=== PATIENT | female | born 1970 | race Caucasian/White ===

== ENCOUNTER 2018-07-11 04:03 | Emergency (ER) | payer MEDICAID ==
[~2018-07-11] VITALS: Ht 162.6 cm; Wt 65.0 kg
[~2018-07-11 04:03] MED LIST: ADVIL PO; ISONIAZID PO; SUMA100T16 PO; TRAMADOL PO; TYLENOL PO; VIT B6 PO
[2018-07-11] MEDS ORDERED: KETOROLAC 30MG/ML VIAL IV ONE (09:15)
[2018-07-11] MEDS ORDERED: SODIUM CHLORIDE 0.9% 1,000 ML IV ONE (09:15)
[2018-07-11] MEDS ORDERED: DIPHENHYDRAMINE 50MG/ML VIAL IV ONE (09:15)
[2018-07-11 11:24] VITALS: BP 118/82
== END 2018-07-11 11:26 | disposition home or self-care (01) ==
LOC: ER 04:03
DX: R51 Headache (principal); Z88.5 Allergy status to narcotic agent; Z91.018 Allergy to other foods
CPT/HCPCS: 81025; 96374; 96375; 99283; J1200; J1885; J7030; Z7610

== ENCOUNTER 2018-11-05 20:18 | Emergency (ER) | payer MEDICAID ==
[~2018-11-05] VITALS: Ht 162.6 cm; Wt 65.7 kg
[2018-11-05] MEDS ORDERED: SODIUM CHLORIDE 0.9% 500 ML IV ONE (22:42)
[2018-11-05] MEDS ORDERED: METOCLOPRAMIDE HCL 10MG/2ML VIAL IV ONE (22:45)
[2018-11-05] MEDS ORDERED: KETOROLAC 15MG/ML VIAL IV ONE (22:45)
[2018-11-05] MEDS ORDERED: DIPHENHYDRAMINE 50MG/ML VIAL IV ONE (22:45)
[2018-11-05 23:06] LABS: BASOPHILS % 0.7 % (0.0-2.0); EOSINOPHILS % 0.7 % (0.0-5.0); HEMATOCRIT. 37.3 % (36.0-48.0); HEMOGLOBIN. 13.2 g/dL (12.0-16.0); LYMPHOCYTES % 20.6 % (20.0-50.0); MEAN CORPUSCULAR VOLUME 87.3 fL (81.0-99.0); MEAN PLATELET VOLUME 8.2 fl (7.4-10.4); PLATELET 219 x1000/uL (130-400); RED BLOOD CELL COUNT 4.28 mill/uL (4.2-5.4); RED CELL DISTRIBUTION WIDTH 13.5 % (11.6-14.6)
[2018-11-05 23:09] LABS: CHLORIDE 107 mEq/L (98-107)
[2018-11-06] MEDS ORDERED: LORAZEPAM 1MG TABLET PO ONE (02:45)
[2018-11-06 05:07] VITALS: BP 108/59
== END 2018-11-06 05:30 | disposition home or self-care (01) ==
LOC: ER 20:18
DX: R51 Headache (principal); R07.89 Other chest pain; Z88.5 Allergy status to narcotic agent; Z79.899 Other long term (current) drug therapy
CPT/HCPCS: 36415; 71045; 80053; 83880; 84484; 85025; 93005; 96374; 96375; 99284; J1200; J1885; J2765; J7030; J7040; Z7610

== ENCOUNTER 2019-03-27 07:49 | Emergency (ER) | payer MEDICAID ==
[~2019-03-27] VITALS: Ht 162.6 cm; Wt 64.0 kg
[2019-03-27] MEDS ORDERED: IBUPROFEN 400MG TABLET PO ONE (08:45)
[2019-03-27] MEDS ORDERED: ACETAMINOPHEN 325MG TABLET PO ONE (08:45)
[2019-03-27 08:52] LABS: BASOPHILS % 1.4 % (0.0-2.0); EOSINOPHILS % 2.8 % (0.0-5.0); HEMATOCRIT. 39.9 % (36.0-48.0); HEMOGLOBIN. 13.7 g/dL (12.0-16.0); LYMPHOCYTES % 31.9 % (20.0-50.0); MEAN CORPUSCULAR HEMOGLOBIN 29.9 pg (28.0-32.0); MEAN CORPUSCULAR VOLUME 87.3 fL (81.0-99.0); NEUTROPHILS % 53.9 % (40.0-76.0); PLATELET 201 x1000/uL (130-400); RED BLOOD CELL COUNT 4.58 mill/uL (4.2-5.4)
[2019-03-27 08:58] LABS: CHLORIDE 110 mEq/L (98-107)
[2019-03-27 11:27] VITALS: BP 120/79
== END 2019-03-27 11:27 | disposition home or self-care (01) ==
LOC: ER 07:49
DX: R07.9 Chest pain, unspecified (principal); R07.89 Other chest pain; G43.909 Migraine, unspecified, not intractable, without status migrainosus; M19.90 Unspecified osteoarthritis, unspecified site; Z88.6 Allergy status to analgesic agent; Z91.018 Allergy to other foods
CPT/HCPCS: 36415; 71045; 80053; 83880; 84484; 85025; 93005; 99284; Z7610

== ENCOUNTER 2019-05-17 15:44 | Emergency (ER) | payer MEDICAID ==
[~2019-05-17] VITALS: Ht 165.1 cm; Wt 60.0 kg
[2019-05-17] MEDS ORDERED: SODIUM CHLORIDE 0.9% 1,000 ML IV ONE (20:08)
[2019-05-17] MEDS ORDERED: ONDANSETRON HCL 4MG/2ML INJ IV STA (20:08)
[2019-05-17] MEDS ORDERED: KETOROLAC 30MG/ML VIAL IV STA (20:08)
[2019-05-17 21:09] VITALS: BP 119/83
[2019-05-17 21:25] LABS: BASOPHILS % 1.8 % (0.0-2.0); EOSINOPHILS % 2.9 % (0.0-5.0); HEMATOCRIT. 37.4 % (36.0-48.0); HEMOGLOBIN. 12.8 g/dL (12.0-16.0); LYMPHOCYTES % 35.7 % (20.0-50.0); MEAN CORPUSCULAR HEMOGLOBIN 29.7 pg (28.0-32.0); MEAN CORPUSCULAR VOLUME 86.4 fL (81.0-99.0); MEAN PLATELET VOLUME 8.7 fl (7.4-10.4); MONOCYTES % 10.9 % (2.0-8.0); NEUTROPHILS % 48.7 % (40.0-76.0); PLATELET 206 x1000/uL (130-400); RED BLOOD CELL COUNT 4.33 mill/uL (4.2-5.4); RED CELL DISTRIBUTION WIDTH 13.2 % (11.6-14.6)
[2019-05-17 21:32] LABS: CHLORIDE 110 mEq/L (98-107)
== END 2019-05-17 23:07 | disposition home or self-care (01) ==
LOC: ER 15:44
DX: R51 Headache (principal); R11.0 Nausea; Z88.6 Allergy status to analgesic agent; Z91.018 Allergy to other foods
CPT/HCPCS: 36415; 80053; 85025; 93005; 96361; 96374; 96375; 99284; J1885; J2405; J7030; Z7610

== ENCOUNTER 2019-07-03 07:03 | Emergency (ER) | payer MEDICAID ==
[~2019-07-03] VITALS: Ht 165.1 cm; Wt 80.0 kg
[2019-07-03] MEDS ORDERED: LORAZEPAM 0.5MG TABLET PO ONE (08:00)
[2019-07-03] MEDS ORDERED: ONDANSETRON 4MG ODT PO ONE (08:00)
[2019-07-03 08:44] LABS: BASOPHILS % 0.5 % (0.0-2.0); EOSINOPHILS % 0.1 % (0.0-5.0); HEMOGLOBIN. 12.6 g/dL (12.0-16.0); LYMPHOCYTES % 8.3 % (20.0-50.0); MEAN CORPUSCULAR HEMOGLOBIN 29.4 pg (28.0-32.0); MEAN CORPUSCULAR VOLUME 85.9 fL (81.0-99.0); MEAN PLATELET VOLUME 8.4 fl (7.4-10.4); MONOCYTES % 7.1 % (2.0-8.0); PLATELET 209 x1000/uL (130-400); RED BLOOD CELL COUNT 4.31 mill/uL (4.2-5.4); RED CELL DISTRIBUTION WIDTH 13.3 % (11.6-14.6)
[2019-07-03 08:49] LABS: INR 1.3; PROTHROMBIN TIME 13.3 sec (9.6-11.0)
[2019-07-03 08:50] LABS: CHLORIDE 109 mEq/L (98-107)
[2019-07-03 09:37] LABS: CLARITY URINE CLEAR (CLEAR); COLOR URINE YELLOW (YELLOW); KETONES URINE 4+ (NEGATIVE); LEUKOCYTE ESTERASE URINE NEGATIVE (NEGATIVE); NITRITE URINE NEGATIVE (NEGATIVE); OCCULT BLOOD URINE NEGATIVE (NEGATIVE); PROTEIN URINE NEGATIVE (NEGATIVE); SPECIFIC GRAVITY URINE 1.026 (1.005-1.030); UROBILINOGEN URINE 0.2 E.U./dL (0.2-1.0)
[2019-07-03 10:35] VITALS: BP 98/57
== END 2019-07-03 10:36 | disposition home or self-care (01) ==
LOC: ER 07:03
DX: R00.2 Palpitations (principal); F41.9 Anxiety disorder, unspecified; F32.9 Major depressive disorder, single episode, unspecified; G43.909 Migraine, unspecified, not intractable, without status migrainosus; Z88.6 Allergy status to analgesic agent; Z91.018 Allergy to other foods
CPT/HCPCS: 36415; 80053; 81003; 81025; 83690; 85025; 85610; 93005; 99284; Q0162; Z7610

== ENCOUNTER 2020-08-08 12:50 | Emergency (ER) | payer MEDICAID ==
[~2020-08-08] VITALS: Ht 162.6 cm; Wt 63.0 kg
[2020-08-08] MEDS ORDERED: ACETAMINOPHEN 325MG TABLET PO ONE (13:45)
[2020-08-08] MEDS ORDERED: KETOROLAC 15MG/ML VIAL IV ONE (13:45)
[2020-08-08] MEDS ORDERED: ACET-2708 MT (14:41)
[2020-08-08 14:59] VITALS: BP 117/77
== END 2020-08-08 14:59 | disposition home or self-care (01) ==
LOC: ER 12:55
DX: M54.9 Dorsalgia, unspecified (principal); M79.601 Pain in right arm; M79.602 Pain in left arm; G43.909 Migraine, unspecified, not intractable, without status migrainosus; Z79.899 Other long term (current) drug therapy; Z88.5 Allergy status to narcotic agent
CPT/HCPCS: 81025; 93005; 96374; 99283; J1885

== ENCOUNTER 2021-01-25 09:20 | Emergency (ER) | payer MEDICAID ==
[~2021-01-25] VITALS: Ht 160 cm; Wt 66.0 kg
[~2021-01-25 09:20] MED LIST changes: +ACET-2708 MT
[2021-01-25 09:24] VITALS: BP 135/83
[2021-01-25 10:13] LABS: BASOPHILS % 1.4 % (0.0-2.0); EOSINOPHILS % 1.5 % (0.0-5.0); HEMATOCRIT. 40.4 % (36.0-48.0); HEMOGLOBIN. 13.7 g/dL (12.0-16.0); LYMPHOCYTES % 27.6 % (20.0-50.0); MEAN CORPUSCULAR HEMOGLOBIN 28.4 pg (28.0-32.0); MEAN CORPUSCULAR VOLUME 83.8 fL (81.0-99.0); MEAN PLATELET VOLUME 8.6 fl (7.4-10.4); MONOCYTES % 11.5 % (2.0-8.0); PLATELET 256 x1000/uL (130-400); RED BLOOD CELL COUNT 4.82 mill/uL (4.2-5.4); RED CELL DISTRIBUTION WIDTH 14.1 % (11.6-14.6)
[2021-01-25 10:20] LABS: CHLORIDE 108 mEq/L (98-107)
[2021-01-25 10:34] LABS: CLARITY URINE CLEAR (CLEAR); COLOR URINE YELLOW (YELLOW); KETONES URINE NEGATIVE (NEGATIVE); LEUKOCYTE ESTERASE URINE NEGATIVE (NEGATIVE); NITRITE URINE NEGATIVE (NEGATIVE); OCCULT BLOOD URINE NEGATIVE (NEGATIVE); PROTEIN URINE NEGATIVE (NEGATIVE); SPECIFIC GRAVITY URINE 1.011 (1.005-1.030); UROBILINOGEN URINE 0.2 E.U./dL (0.2-1.0)
[2021-01-25] MEDS ORDERED: IOHEXOL-300 100 ML BOTTLE ONE (11:48)
== END 2021-01-25 13:30 | disposition home or self-care (01) ==
LOC: ER 09:20
DX: R10.33 Periumbilical pain (principal); K75.81 Nonalcoholic steatohepatitis (NASH); Z91.018 Allergy to other foods; Z88.5 Allergy status to narcotic agent; Z98.890 Other specified postprocedural states
CPT/HCPCS: 36415; 74177; 80053; 81003; 81025; 83690; 85025; 93005; 99285; Q9967; Z7610

== ENCOUNTER 2021-05-02 14:56 | Emergency (ER) | payer MEDICAID ==
[~2021-05-02] VITALS: Ht 165.1 cm; Wt 75.0 kg
[2021-05-02] MEDS ORDERED: IBUPROFEN 400MG TABLET PO ONE (20:45)
[2021-05-02] MEDS ORDERED: VISCOUS LIDOCAINE 2% 15 ML UDC MM PRN (20:45)
[2021-05-02] MEDS ORDERED: ACETAMINOPHEN 325MG TABLET PO ONE (20:45)
[2021-05-02] MEDS ORDERED: TOPUD PO (20:48)
[2021-05-02] MEDS ORDERED: PHEN51CR24 TP (20:49)
[2021-05-02] MEDS ORDERED: IBUP-2028 MT (20:49)
[2021-05-02 20:56] VITALS: BP 121/80
== END 2021-05-02 21:02 | disposition home or self-care (01) ==
LOC: ER 14:56
DX: K64.4 Residual hemorrhoidal skin tags (principal); G43.909 Migraine, unspecified, not intractable, without status migrainosus; Z85.9 Personal history of malignant neoplasm, unspecified; Z91.018 Allergy to other foods; Z88.5 Allergy status to narcotic agent
CPT/HCPCS: 99283; Z7610

== ENCOUNTER 2021-06-06 21:00 | Emergency (ER) | payer MEDICAID ==
[~2021-06-06] VITALS: Ht 162.6 cm; Wt 66.0 kg
[~2021-06-06 21:00] MED LIST changes: +IBUP-2028 MT; +PHEN51CR24 TP; +TOPUD PO
[2021-06-06 22:12] VITALS: BP 140/78
[2021-06-06 22:55] LABS: BASOPHILS % 1.1 % (0.0-2.0); CHLORIDE 108 mEq/L (98-107); EOSINOPHILS % 2.3 % (0.0-5.0); HEMATOCRIT. 39.5 % (36.0-48.0); HEMOGLOBIN. 13.6 g/dL (12.0-16.0); LYMPHOCYTES % 39.4 % (20.0-50.0); MEAN CORPUSCULAR HEMOGLOBIN 29.4 pg (28.0-32.0); MEAN CORPUSCULAR VOLUME 85.4 fL (81.0-99.0); MEAN PLATELET VOLUME 8.5 fl (7.4-10.4); MONOCYTES % 13.4 % (2.0-8.0); NEUTROPHILS % 43.8 % (40.0-76.0); PLATELET 228 x1000/uL (130-400); RED BLOOD CELL COUNT 4.63 mill/uL (4.2-5.4)
[2021-06-07] MEDS ORDERED: MOM MT (00:18)
[2021-06-07] MEDS ORDERED: DOCU-150 MT (00:18)
== END 2021-06-07 00:38 | disposition home or self-care (01) ==
LOC: ER 21:00
DX: R10.32 Left lower quadrant pain (principal); K59.00 Constipation, unspecified; G43.909 Migraine, unspecified, not intractable, without status migrainosus; Z79.899 Other long term (current) drug therapy; Z88.5 Allergy status to narcotic agent
CPT/HCPCS: 36415; 74176; 80053; 85025; 99284

== ENCOUNTER 2021-09-17 03:24 | Emergency (ER) | payer MEDICAID ==
[~2021-09-17] VITALS: Ht 162.6 cm; Wt 65.1 kg
[~2021-09-17 03:24] MED LIST changes: +DOCU-150 MT; +MOM MT
[2021-09-17] MEDS ORDERED: ONDANSETRON 4MG ODT PO ONE (03:30)
[2021-09-17] MEDS ORDERED: KETOROLAC 30MG/ML VIAL IM ONE (03:30)
[2021-09-17 03:46] VITALS: BP 121/78
== END 2021-09-17 05:33 | disposition left against medical advice (07) ==
LOC: ER 03:24
DX: R51.9 Headache, unspecified (principal); Z88.6 Allergy status to analgesic agent; Z91.018 Allergy to other foods
CPT/HCPCS: 99281

== ENCOUNTER 2022-02-01 13:16 | Emergency (ER) | payer MEDICAID ==
[~2022-02-01] VITALS: Ht 162.6 cm; Wt 67.0 kg
[2022-02-01 13:23] VITALS: BP 125/87
[2022-02-01] MEDS ORDERED: CLAR-44 PO (13:30)
[2022-02-01] MEDS ORDERED: METR-167 PO (13:30)
[2022-02-01] MEDS ORDERED: AMOX-494 MT (13:30)
[2022-02-01] MEDS ORDERED: OMEP20CA14 PO (13:31)
== END 2022-02-01 16:59 | disposition home or self-care (01) ==
LOC: ER 13:16
DX: R22.0 Localized swelling, mass and lump, head (principal); K11.7 Disturbances of salivary secretion; T36.0X5A Adverse effect of penicillins, initial encounter; T37.8X5A Adverse effect of other specified systemic anti-infectives and antiparasitics, initial encounter; G43.909 Migraine, unspecified, not intractable, without status migrainosus; Y92.9 Unspecified place or not applicable; Z88.6 Allergy status to analgesic agent; Z91.018 Allergy to other foods
CPT/HCPCS: 99281

== ENCOUNTER 2022-09-01 06:40 | Emergency (ER) | payer MEDICAID ==
[~2022-09-01] VITALS: Ht 165.1 cm; Wt 68.4 kg
[~2022-09-01 06:40] MED LIST changes: +AMOX-494 MT; +CLAR-44 PO; +METR-167 PO; +OMEP20CA14 PO
[2022-09-01 06:46] VITALS: BP 148/100
[2022-09-01] MEDS ORDERED: ACETAMINOPHEN 325MG TABLET PO ONE (08:15)
[2022-09-01 08:27] LABS: BASOPHILS % 1.2 % (0.0-2.0); EOSINOPHILS % 1.3 % (0.0-5.0); HEMATOCRIT. 44.2 % (36.0-48.0); HEMOGLOBIN. 15.7 g/dL (12.0-16.0); LYMPHOCYTES % 25.6 % (20.0-50.0); MEAN CORPUSCULAR HEMOGLOBIN 30.9 pg (28.0-32.0); MEAN CORPUSCULAR VOLUME 87.4 fL (81.0-99.0); MEAN PLATELET VOLUME 8.6 fl (7.4-10.4); MONOCYTES % 8.1 % (2.0-8.0); NEUTROPHILS % 63.8 % (40.0-76.0); PLATELET 251 x1000/uL (130-400); RED BLOOD CELL COUNT 5.06 mill/uL (4.2-5.4)
[2022-09-01 08:29] LABS: CHLORIDE 109 mEq/L (98-107)
[2022-09-01 08:34] LABS: ETHANOL BLOOD < 10 mg/dL
[2022-09-01 09:43] LABS: *AMPHETAMINES SCREEN URINE NEGATIVE (NEGATIVE); *BARBITURATES SCREEN URINE NEGATIVE (NEGATIVE); *BENZODIAZEPINES SCREEN URINE NEGATIVE (NEGATIVE); *COCAINE SCREEN URINE NEGATIVE (NEGATIVE); CANNABINOID URINE SCREEN NEGATIVE (NEGATIVE); METHADONE URINE SCREEN NEGATIVE (NEGATIVE); OPIATES URINE SCREEN NEGATIVE (NEGATIVE); PHENCYCLIDINE URINE SCREEN NEGATIVE (NEGATIVE)
[2022-09-01] MEDS ORDERED: OLANZAPINE 5MG TABLET ODT PO SCH (17:00)
== END 2022-09-01 17:25 | disposition home or self-care (01) ==
LOC: ER 06:58
DX: F41.9 Anxiety disorder, unspecified (principal); Z20.822 Contact with and (suspected) exposure to COVID-19; Z88.5 Allergy status to narcotic agent; Z91.018 Allergy to other foods; Z79.899 Other long term (current) drug therapy; Z86.59 Personal history of other mental and behavioral disorders
CPT/HCPCS: 36415; 80048; 80305; 80307; 80320; 80329; 81025; 85025; 87426; 99283; C9803; G0480

== ENCOUNTER 2023-08-27 06:17 | Emergency (ER) | payer MEDICAID ==
[~2023-08-27] VITALS: Ht 162.6 cm; Wt 69.0 kg
[~2023-08-27 06:17] MED LIST changes: +BACL-141 MT
[2023-08-27 06:21] VITALS: O2SAT 98
[2023-08-27] MEDS ORDERED: MECLIZINE 25MG TABLET PO ONE (07:30)
[2023-08-27] MEDS ORDERED: KETOROLAC 60MG/2ML VIAL IM ONE (07:30)
[2023-08-27] MEDS: MECLIZINE 12.5MG TABLET PO NR (07:45)
[2023-08-27] MEDS ORDERED: NAP5EC MT (09:06)
[2023-08-27] MEDS ORDERED: MECL-299 MT (09:06)
[2023-08-27 09:30] VITALS: TEMP 98.4
[2023-08-27 09:33] VITALS: BP 123/86; PULSE 63; RESP 14
[2023-08-27] MEDS: KETOROLAC 60MG/2ML VIAL IM NR (09:33)
== END 2023-08-27 09:35 | disposition home or self-care (01) ==
LOC: ER 06:25
DX: G43.909 Migraine, unspecified, not intractable, without status migrainosus (principal); R42 Dizziness and giddiness; E78.00 Pure hypercholesterolemia, unspecified; Z88.5 Allergy status to narcotic agent; Z88.8 Allergy status to other drugs, medicaments and biological substances
CPT/HCPCS: 81025; 70450; 96372; 99285; J8597; J1885; Z7610 ×3

== ENCOUNTER 2024-05-26 04:13 | Emergency (ER) | payer MEDICAID ==
[~2024-05-26] VITALS: Ht 162.6 cm; Wt 65.6 kg
[~2024-05-26 04:13] MED LIST changes: -DOCU-150 MT; +DOCU-422 MT; +MECL-299 MT; +NAPR-1495 MT
[2024-05-26 04:59] VITALS: O2SAT 99
[2024-05-26 05:44] LABS: CLARITY URINE CLEAR (CLEAR); COLOR URINE YELLOW (YELLOW); GLUCOSE URINE NEGATIVE (NEGATIVE); KETONES URINE NEGATIVE (NEGATIVE); LEUKOCYTE ESTERASE URINE 1+ (NEGATIVE); NITRITE URINE NEGATIVE (NEGATIVE); OCCULT BLOOD URINE TRACE (NEGATIVE); PH URINE 5.5 (4.5-8.0); PROTEIN URINE NEGATIVE (NEGATIVE); SPECIFIC GRAVITY URINE 1.023 (1.005-1.030)
[2024-05-26 06:59] LABS: SQUAMOUS EPITHELIAL CELL URINE FEW /lpf (RARE/1+); WBC URINE 0-2 /hpf (0-2)
[2024-05-26 07:00] LABS: RBC URINE 0-2 /hpf (0-2)
[2024-05-26 07:01] LABS: BACTERIA URINE NONE SEEN
[2024-05-26 07:19] LABS: BASOPHILS % 0.8 % (0.0-2.0); EOSINOPHILS % 1.6 % (0.0-5.0); HEMATOCRIT. 43.3 % (36.0-48.0); HEMOGLOBIN. 14.8 g/dL (12.0-16.0); LYMPHOCYTES % 33.7 % (20.0-50.0); MEAN CORPUSCULAR HEMOGLOBIN 31.2 pg (28.0-32.0); MEAN CORPUSCULAR HGB CONC 34.2 g/dL (31.0-37.0); MEAN CORPUSCULAR VOLUME 91.2 fL (81.0-99.0); MEAN PLATELET VOLUME 8.8 fl (7.4-10.4); MONOCYTES % 9.1 % (2.0-8.0); NEUTROPHILS % 54.8 % (40.0-76.0); PLATELET 210 x1000/uL (130-400); RED BLOOD CELL COUNT 4.75 mill/uL (4.2-5.4); RED CELL DISTRIBUTION WIDTH 12.8 % (11.6-14.6)
[2024-05-26 07:27] LABS: CHLORIDE 109 mEq/L (98-107); POTASSIUM 4.5 mEq/L (3.5-5.1); SODIUM 139 mEq/L (136-145)
[2024-05-26 07:28] LABS: CALCIUM 9.3 mg/dL (8.7-10.4); CARBON DIOXIDE 25 mEq/L (21-32)
[2024-05-26 07:33] LABS: CREATININE 0.6 mg/dL (0.6-1.0); GLUCOSE 93 mg/dL (70-105); UREA NITROGEN BLOOD 10 mg/dL (9-23)
[2024-05-26 07:35] LABS: ALANINE AMINOTRANSFERASE 26 IU/L (10-49); ALBUMIN 4.3 g/dL (3.2-4.8); ASPARTATE AMINOTRANSFERASE 18 IU/L (<34); BILIRUBIN TOTAL 0.4 mg/dL (0.1-1.0)
[2024-05-26] MEDS ORDERED: ONDANSETRON 4MG ODT PO ONE (08:15)
[2024-05-26] MEDS ORDERED: ACETAMINOPHEN 325MG TABLET PO ONE (08:15)
[2024-05-26] MEDS ORDERED: FAMOTIDINE 20MG TABLET PO ONE (08:15)
[2024-05-26] MEDS: FAMOTIDINE 20MG TABLET PO NR (10:04)
[2024-05-26] MEDS: ONDANSETRON 4MG ODT PO NR (10:05)
[2024-05-26] MEDS: ACETAMINOPHEN 325MG TABLET PO NR (10:05)
[2024-05-26 10:28] LABS: TROPONIN I HIGH SENSITIVITY < 4 ng/L (3.0-34)
[2024-05-26] MEDS ORDERED: ONDA-239 PO (11:57)
[2024-05-26 12:01] VITALS: BP 118/69; PULSE 84; RESP 16; TEMP 36.94740; O2SAT 99
== END 2024-05-26 12:05 | disposition home or self-care (01) ==
LOC: ER 04:13
DX: R07.89 Other chest pain (principal); R19.7 Diarrhea, unspecified; R11.2 Nausea with vomiting, unspecified; E78.00 Pure hypercholesterolemia, unspecified; Z88.5 Allergy status to narcotic agent; Z79.899 Other long term (current) drug therapy; Z86.59 Personal history of other mental and behavioral disorders; Z20.822 Contact with and (suspected) exposure to COVID-19
CPT/HCPCS: 99285; 74176; 71045; 87426; 80053; 81003; 83690; 85025; 84484; 87804 ×2; 36415; 93005; Q0162

== ENCOUNTER 2025-01-05 07:54 | Emergency (ER) | payer MEDICAID ==
[~2025-01-05] VITALS: Ht 162.6 cm; Wt 72.0 kg
[~2025-01-05 07:54] MED LIST changes: +ONDA-239 PO
[2025-01-05 08:11] VITALS: O2SAT 97
[2025-01-05] MEDS: ACETAMINOPHEN 500MG TABLET PO ONE (08:51)
[2025-01-05 09:02] LABS: BASOPHILS % 0.9 % (0.0-2.0); EOSINOPHILS % 4.1 % (0.0-5.0); HEMATOCRIT. 41.0 % (36.0-48.0); HEMOGLOBIN. 14.1 g/dL (12.0-16.0); LYMPHOCYTES % 21.6 % (20.0-50.0); MEAN PLATELET VOLUME 8.0 fl (7.4-10.4); MONOCYTES % 14.4 % (2.0-8.0); NEUTROPHILS % 59.0 % (40.0-76.0); PLATELET 206 x1000/uL (130-400); RED BLOOD CELL COUNT 4.67 mill/uL (4.2-5.4); RED CELL DISTRIBUTION WIDTH 12.6 % (11.6-14.6)
[2025-01-05 09:20] LABS: CREATININE 0.6 mg/dL (0.6-1.0)
[2025-01-05 09:21] LABS: TROPONIN I HIGH SENSITIVITY < 4 ng/L (3.0-34); UREA NITROGEN BLOOD 12 mg/dL (9-23)
[2025-01-05 09:22] LABS: ASPARTATE AMINOTRANSFERASE 20 IU/L (<34)
[2025-01-05 09:23] LABS: BILIRUBIN DIRECT 0.1 mg/dL (<=3.0); BILIRUBIN TOTAL 0.6 mg/dL (0.1-1.0); PROTEIN TOTAL 7.2 g/dL (6.0-8.3)
[2025-01-05] MEDS ORDERED: LEVO750T68 MT (11:14)
[2025-01-05] MEDS ORDERED: BENZ100C86 MT (11:14)
[2025-01-05 11:24] VITALS: BP 124/81; PULSE 69; RESP 18; TEMP 36.6; O2SAT 100
== END 2025-01-05 11:26 | disposition home or self-care (01) ==
LOC: ER 07:54
DX: J18.9 Pneumonia, unspecified organism (principal); G43.909 Migraine, unspecified, not intractable, without status migrainosus; E78.00 Pure hypercholesterolemia, unspecified; R06.02 Shortness of breath; Z79.899 Other long term (current) drug therapy; Z88.5 Allergy status to narcotic agent
CPT/HCPCS: 80076; 80048; 83880; 85025; 84484; 36415; 71045; 93005; 99285; Z7610; A4606

== ENCOUNTER 2025-04-24 01:47 | Emergency (ER) | payer MEDICAID ==
[~2025-04-24] VITALS: Ht 162.6 cm; Wt 70.2 kg
[~2025-04-24 01:47] MED LIST changes: +BENZ100C86 MT; +LEVO750T68 MT
[2025-04-24 01:54] VITALS: O2SAT 100
[2025-04-24] MEDS: FLUORESCEIN SODIUM 1MG/STRIP LEFTEYE ONE (02:50)
[2025-04-24] MEDS: TETRACAINE 0.5% OPHTH DROPS 4ML BOTHEYE ONE (02:50)
[2025-04-24] MEDS: IBUPROFEN 600MG TABLET PO ONE (02:53)
[2025-04-24 03:50] VITALS: BP 113/80; PULSE 68; RESP 17; TEMP 36.7; O2SAT 100
== END 2025-04-24 03:55 | disposition home or self-care (01) ==
LOC: ER 01:47
DX: H00.025 Hordeolum internum left lower eyelid (principal); E78.00 Pure hypercholesterolemia, unspecified; Z79.1 Long term (current) use of non-steroidal anti-inflammatories (NSAID); Z88.5 Allergy status to narcotic agent
CPT/HCPCS: 99283

== ENCOUNTER 2025-05-06 17:14 | Emergency (ER) | payer MEDICAID ==
[~2025-05-06] VITALS: Ht 162.6 cm; Wt 69.0 kg
[2025-05-06 17:18] VITALS: TEMP 36.9; O2SAT 98
[2025-05-06 17:52] LABS: BASOPHILS % 0.9 % (0.0-2.0); EOSINOPHILS % 2.4 % (0.0-5.0); HEMATOCRIT. 40.2 % (36.0-48.0); HEMOGLOBIN. 14.0 g/dL (12.0-16.0); LYMPHOCYTES % 31.7 % (20.0-50.0); MEAN PLATELET VOLUME 8.3 fl (7.4-10.4); MONOCYTES % 8.2 % (2.0-8.0); NEUTROPHILS % 56.8 % (40.0-76.0); PLATELET 241 x1000/uL (130-400); RED BLOOD CELL COUNT 4.65 mill/uL (4.2-5.4); RED CELL DISTRIBUTION WIDTH 12.7 % (11.6-14.6)
[2025-05-06 18:02] LABS: CREATININE 0.8 mg/dL (0.6-1.0)
[2025-05-06 18:03] LABS: UREA NITROGEN BLOOD 20 mg/dL (9-23)
[2025-05-06 18:04] LABS: TROPONIN I HIGH SENSITIVITY < 4 ng/L (3.0-34)
[2025-05-06 20:52] LABS: TROPONIN I HIGH SENSITIVITY < 4 ng/L (3.0-34)
[2025-05-06 21:19] VITALS: BP 110/74; PULSE 64; RESP 16; O2SAT 95
== END 2025-05-06 21:23 | disposition home or self-care (01) ==
LOC: ER 17:14
DX: R07.89 Other chest pain (principal); E78.00 Pure hypercholesterolemia, unspecified; Z88.5 Allergy status to narcotic agent; Z88.8 Allergy status to other drugs, medicaments and biological substances
CPT/HCPCS: 36415; 71045; 80048; 84484; 85025; 93005; 99291